=== PATIENT | male | born 1960 | race Caucasian/White ===

== ENCOUNTER → 2017-03-23 | Outpatient (CLI) | payer BC ==
[~2017-03-23] MED LIST: ALBUTEROL17 GM INH; ASPIR-TRIN325 MG PO; EXFORGE 5-320 M1 TAB PO; FISH OIL 1,2001 CAP PO; FLONASE16 GM; MEDROL DOSEPAK4 MG DOB; MULTI VITAMIN1 EACH PO; MULTI-DAY VITAM1 TAB PO; OMEGA 3 FISH OI1 CAP PO; ROBITUSSIN15 MG/5 ML; VIBRAMYCIN100 M1 DOB; ZOCOR10 MG PO
--- NOTE | ~2017-03-23 | CR172 ---
[facility] A Service of [facility] RADIOLOGY TEXT RESULTS PATIENT: GILBERTO HINDS LOCATION: [facility] #: [id number] : 64 UNIT #: [id number] AGE: [address]: Mackenzie Dempsey MD SEX: M ORDER DR: [id number] [facility]. [place], [place] [address] [id number] O MR#: [id number] [facility] #: [id number] NAME: GILBERTO HINDS : 1960 SEX: M STUDY DATE/TIME: 03/23/2017 12:59 UNIT: [facility] ROOM: STUDY DESCRIPTION: CR Knee 3 Views Lt Attending Physician: Mackenzie Dempsey M.D. Referring Physician: Mackenzie Dempsey M.D. Ordering Physician: Mackenzie Dempsey M.D. Primary Care Physician: Mackenzie Dempsey M.D. MEDICAL IMAGING REPORT This report is preliminary unless electronic signature is present EXAM 3 views of the left knee 03/23/2017 HISTORY Left knee pain for 3 months per patient. No known injury. Physician's order states osteoarthritis of both knees. Worsening knee pain for last month, grinds, evaluate for OA. COMPARISON None. FINDINGS No fracture. No joint dislocation. Trace suprapatellar joint effusion is present. Moderately advanced patellofemoral compartment degenerative change manifest as joint space narrowing and prominent osteophyte formation along the articular surfaces of both the patella and the femoral condyles. There is moderate medial compartment joint space narrowing. Both the lateral and medial compartments demonstrate mild marginal osteophyte formation. There is also tibial spine spurring. IMPRESSION 1. Moderate to moderately advanced degenerative changes of the left knee, greatest within the patellofemoral compartment. 2. Suspected trace suprapatellar joint effusion. 3. No acute fracture or dislocation. Dictated by... Starla Barry M.D. [facility] A Service of [facility] RADIOLOGY TEXT RESULTS PATIENT: GILBERTO HINDS LOCATION: [facility] #: [id number] : 64 UNIT #: [id number] AGE: [address]: Mackenzie Dempsey MD SEX: M ORDER DR: THIS IS AN ELECTRONICALLY VERIFIED REPORT Starla Barry M.D. at 03/27/2017 8:40 AM LENY/marion TD: 03/23/2017 18:31 JOB #: [id number] MEDICAL IMAGING REPORT Page 1 of 1 COPY
--- NOTE | ~2017-03-23 | CR173 ---
[facility] A Service of [facility] RADIOLOGY TEXT RESULTS PATIENT: GILBERTO HINDS LOCATION: [facility] : 64 UNIT #: [id number] AGE: [address]: Mackenzie Dempsey MD SEX: M ORDER DR: [id number] [place], [place] [address] [id number] O MR#: [id number] Acc #: [id number] NAME: GILBERTO HINDS : 1960 SEX: M STUDY DATE/TIME: 03/23/2017 12:59 UNIT: [facility] ROOM: STUDY DESCRIPTION: CR Knee 3 Views Rt Attending Physician: Mackenzie Dempsey M.D. Referring Physician: Mackenzie Dempsey M.D. Ordering Physician: Mackenzie Dempsey M.D. Primary Care Physician: Mackenzie Dempsey M.D. MEDICAL IMAGING REPORT This report is preliminary unless electronic signature is present EXAM 3 views right knee 03/23/2017 HISTORY 56-year-old male with osteoarthritis. Patient states right knee pain for 1 month. No known injury. COMPARISON None. FINDINGS No fracture. No dislocation. No joint effusion. Eqzl-ia-douildvq patellofemoral compartment joint space narrowing with posterior patellar osteophytes. Bhle-gg-eiomolnb medial compartment joint space narrowing. Tibial spine spurring. Mild lateral compartment marginal osteophyte formation. Small enthesophyte at the quadriceps tendon insertion from the anterior-superior patella. IMPRESSION 1. Mild to qxwj-xg-rwwbnmjc degenerative changes of the right knee as described, greatest in the patellofemoral and medial compartments. 2. No acute abnormality. Dictated by... Starla Barry M.D. THIS IS AN ELECTRONICALLY VERIFIED REPORT Starla Barry M.D. at 03/27/2017 8:40 AM LLH/pcl TD: 03/23/2017 18:29 [facility] A Service of [facility] RADIOLOGY TEXT RESULTS PATIENT: GILBERTO HINDS LOCATION: [facility] #: [id number] : 64 UNIT #: [id number] AGE: [address]: Mackenzie Dempsey MD SEX: M ORDER DR: JOB #: [id number] MEDICAL IMAGING REPORT Page 1 of 1 COPY
== END | disposition home or self-care (01) ==
LOC: CRAD 12:32
DX: M17.0 Bilateral primary osteoarthritis of knee (principal)
CPT/HCPCS: 73562